=== PATIENT | female | born 1970 | race Caucasian/White ===

== ENCOUNTER 2020-04-16 11:26 | Inpatient (IN) ==
--- NOTE | 2020-04-16 11:41 | Emergency Department Note ---
Impression & Plan Combative behavior, Manic behavior ED Provider Note NAME: HERIBERTO CLARK AGE: 49 SEX: F : 1970 ARRIVES VIA: [employer] INFORMANT: Patient, ED PROVIDER(S): Dago Meyer MD Chief Complaint: Mental health evaluation HPI: Patient does present from a hotel with [place] police. The patient apparently had been destroying the room. Patient does present with manic tangential delusional and paranoid thoughts. Patient was concerned that she was going to be cut open. Patient believes that she recently aborted a fetus. The patient states that she does not speak to either a cell support operator or L and generous. She states that she does have to get to her spaceship. Patient initially did have a rock wrapped in a bandanna as a potential weapon. The patient denies having a gun. The patient is uncooperative during her exam and refuses to answer questions appropriately. ROS: Unable to obtain secondary to willingness to participate versus acute mental illness. Past medical history: See below Surgical history: See below Social history: See below Physical Exam: GENERAL: Wearing glasses and a mask. Agitated. EYE EXAM: Normal conjunctiva. PERRL, no anisocoria and EOM's grossly intact w/o pain. NECK: Supple, no nuchal rigidity, no adenopathy, non-tender. No signs of meningismus. LUNGS: Clear to auscultation. Normal chest wall mechanics. HEART: NSR, no MRG. ABDOMEN: Abdomen soft, non-tender, normo-active bowel sounds, no masses, no rebound or guarding. BACK: No CVA TTP. SKIN: No rashes and no bruising. UPPER EXTREMITIES: Upper extremities are grossly normal. LOWER EXTREMITIES: Grossly normal, no edema. NEURO EXAM: Eyes open, normal speech, moves all 4 extremities. Psych: Tangential speech, aggressive and verbally agitated. Differential diagnoses: Mood disorder, infection, hypoglycemia, electrolyte abnormalities, cardiac sources, intracerebral event, toxicologic, trauma, neurologic, as well as other pathologies. Course: Patient was seen and evaluated the bedside. Full history physical exam was performed. MDM: Patient seen due to concern for combative behavior as well as tangential speech and delusional thoughts. The patient did have to receive chemical sedation due to concern for the safety of herself and others as the patient did have aggressive behavior and was significantly agitated and would not respond to redirection. Blood work is unremarkable toxicology screen negative. Patient was pending evaluation by the psych correctional case manager. The patient was signed out to the nighttime physician Dr. Faustin pending reevaluation and disposition. Critical Care: I have personally spent 47 minutes of critical care time in direct management of this patient. This includes bedside care, interpretation of diagnostic studies, and testing, discussion with consultants, patient, and family members, and other require inpatient management activities. This 47 minutes is in excess of all separately billable procedures. Past Med/Surg History Medical History Hyperlipidemia Hypertension Surgical History No significant past surgical history Family History Other No pertinent family history Social History Smoking Status: Current every day smoker Tobacco Type: Cigarettes Hx Alcohol Use: No Hx Substance Use: No Preferred Language: P[place]in[place] marital status: Single Current Living Situation: Homeless current occupational status: unemployed Feels Safe at Home: Yes Allergies Allergies Allergy/AdvReac Type Severity Reaction Status Date / Time codeine Allergy Nausea Verified 04/16/20 16:43 erythromycin base Allergy Nausea Verified 04/16/20 16:43 lisinopril Allergy Cough Verified 04/16/20 16:43 Penicillins Allergy Nausea Verified 04/16/20 16:43 risperidone [From Risperdal] Allergy Unknown Verified 04/16/20 16:43 oxcarbazepine AdvReac Nausea Verified 04/16/20 16:43 [From Trileptal] Home Meds Home Medications Medication Instructions Recorded Confirmed propranolol 40 mg PO BID 07/04/19 04/16/20 Results & Data (ED) Vital Signs Vital Signs - 24 hr 04/16/20 11:14 04/16/20 13:44 04/16/20 16:09 Temperature 36.8 C Temperature Source Oral Pulse Rate 112 H Pulse Rate [Finger] 73 70 Pulse Rhythm [Finger] Regular Pulse Strength [Finger] Normal Respiratory Rate 20 14 18 Respiratory Effort / Characteristics Non-Labored Spontaneous Non-Labored Spontaneous Respiratory Depth Normal Normal Normal Respiratory Pattern Regular Regular Blood Pressure 148/107 H Blood Pressure [Right Arm] 122/71 100/64 Blood Pressure Mean 120 Blood Pressure Mean [Right Arm] 88 76 Blood Pressure Position Sitting Blood Pressure Position [Right Arm] Semi-fowlers Lying Pulse Oximetry 99 100 99 Oxygen Delivery Method Room Air Room Air Room Air Home Medications Current Medication List: was personally reviewed by me Laboratory Data Attestation: I reviewed the patient's lab results. Result diagrams: 04/16/20 11:49 04/16/20 11:49 Lab Results 04/16/20 04/16/20 04/16/20 Range/Units 11:49 11:49 11:49 WBC 6.44 (4.8-10.8) K/uL RBC 4.18 L (4.2-5.4) M/uL Hgb 13.2 (12.0-16.0) g/dL Hct 38.7 (37-47) % MCV 92.6 (80-100) fL MCH 31.6 (25-34) pg MCHC 34.1 (32-36) g/dL RDW Std Deviation 41.8 (36.4-46.3) fL RDW Coeff of Kathryn 12.2 (11.5-14.5) % Plt Count 361 (130-400) K/uL MPV 8.7 (7.4-10.4) fL Immature Gran % (Auto) 0.0 % Neut % (Auto) 54.0 % Lymph % (Auto) 35.9 % [place] % (Auto) 7.9 % Eos % (Auto) 1.1 % Baso % (Auto) 1.1 % Neut # (Auto) 3.48 (1.4-6.5) K/uL Lymph # (Auto) 2.31 (1.2-3.4) K/uL [place] # (Auto) 0.51 (0.11-0.59) K/uL Eos # (Auto) 0.07 (0-0.5) K/uL Baso # (Auto) 0.07 (0-0.2) K/uL Immature Gran # (Auto) 0.00 (0.00-0.02) K/uL Sodium 136 (136-145) mmol/L Potassium 4.0 (3.5-5.1) mmol/L Chloride 102 (98-107) mmol/L Carbon Dioxide 26 (21-32) mmol/L Anion Gap 8.0 (3-11) BUN 12 (7-18) mg/dl Creatinine 0.99 (0.6-1.2) mg/dl Est Cr Clr Drug Dosing Not Reportable Est GFR ( Amer) 78.7 Est GFR (Non-Af Amer) 67.9 BUN/Creatinine Ratio 12.0 (10-20) Glucose 107 H (70-99) mg/dl Calcium 9.4 (8.5-10.1) mg/dl Total Bilirubin 0.4 (0.2-1) mg/dl AST 27 (15-37) U/L ALT 41 (12-78) U/L Alkaline Phosphatase 61 (45-117) U/L Total Protein 7.7 (6.4-8.2) gm/dl Albumin 4.3 (3.4-5.0) gm/dl Globulin 3.4 (2.5-4.0) gm/dl Albumin/Globulin Ratio 1.3 (0.9-2) TSH 1.160 (0.300-4.500) uIu/ml Urine Color Urine Appearance (Clear) Urine pH (4.5-7.5) Ur Specific [place] (1.000-1.030) Urine Protein (Negative) Urine Glucose (UA) (Negative) Urine Ketones (Negative) Urine Blood (Negative) Urine Nitrite (Negative) Urine Bilirubin (Negative) Urine Urobilinogen (Negative) Ur Leukocyte Esterase (Negative) Urine WBC (Auto) (0-5) /hpf Urine RBC (Auto) (0-4) /hpf U Hyaline Cast (Auto) (0-5) /lpf U Epithel Cells (Auto) (0-5) /lpf Urine Bacteria (Auto) (Negative) Urine Test (Negative) Salicylates 2.4 L (2.8-20) mg/dl Urine Opiates Screen (Neg) Ur Methadone, Qual (Neg) Acetaminophen < 2 L (10-30) ug/ml Urine Barbiturates (Neg) Ur Phencyclidine (PCP) (Neg) U Amphetamin/Meth Scrn (Neg) MDMA (Ecstasy) Screen (Neg) U Benzodiazepines Scrn (Neg) Ur Cocaine Metabolite (Neg) U Marijuana (THC) Screen (Neg) Ethyl Alcohol mg/dL (0-3) mg/dl 10/18/20 10/18/20 10/18/20 Range/Units 11:49 14:40 14:40 WBC (4.8-10.8) K/uL RBC (4.2-5.4) M/uL Hgb (12.0-16.0) g/dL Hct (37-47) % MCV (80-100) fL MCH (25-34) pg MCHC (32-36) g/dL RDW Std Deviation (36.4-46.3) fL RDW Coeff of Kathryn (11.5-14.5) % Plt Count (130-400) K/uL MPV (7.4-10.4) fL Immature Gran % (Auto) % Neut % (Auto) % Lymph % (Auto) % [place] % (Auto) % Eos % (Auto) % Baso % (Auto) % Neut # (Auto) (1.4-6.5) K/uL Lymph # (Auto) (1.2-3.4) K/uL [place] # (Auto) (0.11-0.59) K/uL Eos # (Auto) (0-0.5) K/uL Baso # (Auto) (0-0.2) K/uL Immature Gran # (Auto) (0.00-0.02) K/uL Sodium (136-145) mmol/L Potassium (3.5-5.1) mmol/L Chloride (98-107) mmol/L Carbon Dioxide (21-32) mmol/L Anion Gap (3-11) BUN (7-18) mg/dl Creatinine (0.6-1.2) mg/dl Est Cr Clr Drug Dosing Est GFR ( Amer) Est GFR (Non-Af Amer) BUN/Creatinine Ratio (10-20) Glucose (70-99) mg/dl Calcium (8.5-10.1) mg/dl Total Bilirubin (0.2-1) mg/dl AST (15-37) U/L ALT (12-78) U/L Alkaline Phosphatase (45-117) U/L Total Protein (6.4-8.2) gm/dl Albumin (3.4-5.0) gm/dl Globulin (2.5-4.0) gm/dl Albumin/Globulin Ratio (0.9-2) TSH (0.300-4.500) uIu/ml Urine Color Yellow Urine Appearance Clear (Clear) Urine pH 6.5 (4.5-7.5) Ur Specific [place] 1.012 (1.000-1.030) Urine Protein 1+ H (Negative) Urine Glucose (UA) Negative (Negative) Urine Ketones Negative (Negative) Urine Blood Negative (Negative) Urine Nitrite Negative (Negative) Urine Bilirubin Negative (Negative) Urine Urobilinogen Negative (Negative) Ur Leukocyte Esterase Negative (Negative) Urine WBC (Auto) 1-5 (0-5) /hpf Urine RBC (Auto) 0-4 (0-4) /hpf U Hyaline Cast (Auto) 1-5 (0-5) /lpf U Epithel Cells (Auto) 10-20 H (0-5) /lpf Urine Bacteria (Auto) Negative (Negative) Urine Test Negative (Negative) Salicylates (2.8-20) mg/dl Urine Opiates Screen (Neg) Ur Methadone, Qual (Neg) Acetaminophen (10-30) ug/ml Urine Barbiturates (Neg) Ur Phencyclidine (PCP) (Neg) U Amphetamin/Meth Scrn (Neg) MDMA (Ecstasy) Screen (Neg) U Benzodiazepines Scrn (Neg) Ur Cocaine Metabolite (Neg) U Marijuana (THC) Screen (Neg) Ethyl Alcohol mg/dL < 3.0 (0-3) mg/dl 04/16/20 Range/Units 14:40 WBC (4.8-10.8) K/uL RBC (4.2-5.4) M/uL Hgb (12.0-16.0) g/dL Hct (37-47) % MCV (80-100) fL MCH (25-34) pg MCHC (32-36) g/dL RDW Std Deviation (36.4-46.3) fL RDW Coeff of Kathryn (11.5-14.5) % Plt Count (130-400) K/uL MPV (7.4-10.4) fL Immature Gran % (Auto) % Neut % (Auto) % Lymph % (Auto) % [place] % (Auto) % Eos % (Auto) % Baso % (Auto) % Neut # (Auto) (1.4-6.5) K/uL Lymph # (Auto) (1.2-3.4) K/uL [place] # (Auto) (0.11-0.59) K/uL Eos # (Auto) (0-0.5) K/uL Baso # (Auto) (0-0.2) K/uL Immature Gran # (Auto) (0.00-0.02) K/uL Sodium (136-145) mmol/L Potassium (3.5-5.1) mmol/L Chloride (98-107) mmol/L Carbon Dioxide (21-32) mmol/L Anion Gap (3-11) BUN (7-18) mg/dl Creatinine (0.6-1.2) mg/dl Est Cr Clr Drug Dosing Est GFR ( Amer) Est GFR (Non-Af Amer) BUN/Creatinine Ratio (10-20) Glucose (70-99) mg/dl Calcium (8.5-10.1) mg/dl Total Bilirubin (0.2-1) mg/dl AST (15-37) U/L ALT (12-78) U/L Alkaline Phosphatase (45-117) U/L Total Protein (6.4-8.2) gm/dl Albumin (3.4-5.0) gm/dl Globulin (2.5-4.0) gm/dl Albumin/Globulin Ratio (0.9-2) TSH (0.300-4.500) uIu/ml Urine Color Urine Appearance (Clear) Urine pH (4.5-7.5) Ur Specific [place] (1.000-1.030) Urine Protein (Negative) Urine Glucose (UA) (Negative) Urine Ketones (Negative) Urine Blood (Negative) Urine Nitrite (Negative) Urine Bilirubin (Negative) Urine Urobilinogen (Negative) Ur Leukocyte Esterase (Negative) Urine WBC (Auto) (0-5) /hpf Urine RBC (Auto) (0-4) /hpf U Hyaline Cast (Auto) (0-5) /lpf U Epithel Cells (Auto) (0-5) /lpf Urine Bacteria (Auto) (Negative) Urine Test (Negative) Salicylates (2.8-20) mg/dl Urine Opiates Screen Neg (Neg) Ur Methadone, Qual Neg (Neg) Acetaminophen (10-30) ug/ml Urine Barbiturates Neg (Neg) Ur Phencyclidine (PCP) Neg (Neg) U Amphetamin/Meth Scrn Neg (Neg) MDMA (Ecstasy) Screen Neg (Neg) U Benzodiazepines Scrn Neg (Neg) Ur Cocaine Metabolite Neg (Neg) U Marijuana (THC) Screen Pos H (Neg) Ethyl Alcohol mg/dL (0-3) mg/dl Administered Medications Diphenhydramine HCl (Diphenhydramine Hcl 50 Mg/Ml Vial) 25 mg IM ONE PRN PRN Reason: Agitation Stop: 05/16/20 11:49 Last Admin: 04/16/20 12:00 Dose: 25 mg Documented by: [id number] Discontinued Medications Haloperidol Lactate (Haloperidol Lactate 5 Mg/Ml 1 Ml Vial) 5 mg IM NOW STA Stop: 04/16/20 11:51 Last Admin: 04/16/20 12:12 Dose: Not Given Documented by: [id number] Haloperidol Lactate (Haloperidol Lactate 5 Mg/Ml 1 Ml Vial) 10 mg IM NOW STA Stop: 04/16/20 11:57 Last Admin: 04/16/20 12:00 Dose: 10 mg Documented by: [id number] Lorazepam (Lorazepam 2 Mg/Ml Vial (Im Use)) 2 mg IM NOW STA Stop: 04/16/20 11:51 Last Admin: 04/16/20 12:00 Dose: 2 mg Documented by: [id number] Discharge Plan Visit Data Chief Complaint: Mental Health Evaluation ED Provider: Dago Meyer Discharge Problem: Combative behavior, Manic behavior Forms Stand Alone Forms: [facility], Suicide Prevention Resources Prescriptions Prescriptions: No Action propranolol 40 mg Tablet 40 mg PO BID RF: 0
[2020-04-16] MEDS ORDERED: LORazepam 2 MG/ML VIAL (IM USE) IM STA (11:50)
[2020-04-16] MEDS ORDERED: HALOPERIDOL LACTATE 5 MG/ML 1 ML VIAL IM STA ×2 (11:50→11:56)
[2020-04-16] MEDS ORDERED: diphenhydrAMINE 50 MG/ML VIAL IM PRN (11:50)
[2020-04-16 12:09] LABS: Basophils # (auto) 0.07 K/uL (0-0.2); Basophils % (auto) 1.1 %; Eosinophils # (auto) 0.07 K/uL (0-0.5); Eosinophils % (auto) 1.1 %; Hematocrit (blood only) 38.7 % (37-47); Hemoglobin 13.2 g/dL (12.0-16.0); Lymphocytes # (auto) 2.31 K/uL (1.2-3.4); Lymphocytes % (auto) 35.9 %; Mean Corpuscular Hemoglobin 31.6 pg (25-34); Mean Corpuscular Hgb Conc 34.1 g/dL (32-36); Mean Corpuscular Volume 92.6 fL (80-100); Mean Platelet Volume 8.7 fL (7.4-10.4); Monocytes # (auto) 0.51 K/uL (0.11-0.59); Monocytes % (auto) 7.9 %; Neutrophils # (auto) 3.48 K/uL (1.4-6.5); Platelet Count 361 K/uL (130-400); RDW Coefficient of Variation 12.2 % (11.5-14.5); RDW Standard Deviation 41.8 fL (36.4-46.3); Red Blood Count 4.18 M/uL (4.2-5.4); White Blood Count 6.44 K/uL (4.8-10.8)
[2020-04-16 12:32] LABS: Alanine Aminotransferase 41 U/L (12-78); Albumin Level 4.3 gm/dl (3.4-5.0); Aspartate Aminotransferase 27 U/L (15-37); Blood Urea Nitrogen 12 mg/dl (7-18); Calcium 9.4 mg/dl (8.5-10.1); Carbon Dioxide 26 mmol/L (21-32); Chloride 102 mmol/L (98-107); Est GFR (African American) 78.7; Est GFR (Non-African American) 67.9; Glucose 107 mg/dl (70-99); Sodium 136 mmol/L (136-145)
[2020-04-16 12:34] LABS: Acetaminophen < 2 ug/ml (10-30)
[2020-04-16 12:35] LABS: Salicylate 2.4 mg/dl (2.8-20)
[2020-04-16 12:43] LABS: Albumin Globulin Ratio 1.3 (0.9-2); Alkaline Phosphatase 61 U/L (45-117); Bilirubin,Total 0.4 mg/dl (0.2-1); Globulin 3.4 gm/dl (2.5-4.0); Total Protein 7.7 gm/dl (6.4-8.2)
[2020-04-16 14:55] LABS: Appearance Urine Clear (Clear); Bacteria Urine Automated Negative (Negative); Bilirubin Urine Negative (Negative); Blood Urine Negative (Negative); Color Urine Yellow; Glucose Urine UA Negative (Negative); Ketones Urine Negative (Negative); Leukocyte Esterase Urine Negative (Negative); Nitrite Urine Negative (Negative); Pregnancy Test, Urine Negative (Negative); Protein Urine 1+ (Negative); RBC Urine Automated 0-4 /hpf (0-4); Specific Gravity Urine 1.012 (1.000-1.030); Urobilinogen Urine Negative (Negative); pH Urine 6.5 (4.5-7.5)
[2020-04-16 15:14] LABS: Amphetamines+Metham, Urine Neg (Neg); Barbiturates, Urine Neg (Neg); Benzodiazepine, Urine Neg (Neg); Cocaine, Urine Neg (Neg); MDMA (Ecstacy), Urine Neg (Neg); Methadone, Urine Neg (Neg); Opiate, Urine Neg (Neg); Phencyclidine, Urine Neg (Neg)
[2020-04-17] MEDS ORDERED: LORazepam 2 MG/ML VIAL (IM USE) IM STA (00:22)
[2020-04-17] MEDS ORDERED: HALOPERIDOL LACTATE 5 MG/ML 1 ML VIAL IM STA (00:22)
--- NOTE | 2020-04-17 00:25 | Emergency Department Note ---
ED Visit Note I received this patient at change of shift signout from Dr. Meyer. Please see his note for initial history and physical exam. The patient is a 49-year-old female who presented to the emergency department with an acute mental health problem. The patient was medically cleared in the emergency department however she was very combative she required chemical restraint which was ordered by Dr. Meyer. She received Haldol and Ativan. She was reevaluated in the emergency department multiple times but was still very sedated. On my evaluation the p atnelia was awake and alert. She awakens easily to verbal commands. She still has very significant mental health issues at this time. For this reason I have decided to sign the 302 petition requiring the patient to have involuntary mental health admission. She initially was very argumentative and started to become combative although she was very easily deescalated verbally. At this time we are awaiting the delegates arrival so we can move forward the 302 admission. 0135: The patient has been medically cleared. I reviewed her work-up that was done earlier. She is being evaluated currently by the mental health delegate from [address] for possible inpatient management. At this time I do feel the patient will require the 302 to be upheld. .
[2020-04-17] MEDS ORDERED: haloperidoL 5 MG TAB PO STA (04:12)
[2020-04-17] MEDS ORDERED: ALUMINUM/MAGNESIUM SUSP 30 ML UDC PO PRN (05:01)
[2020-04-17] MEDS ORDERED: MAGNESIUM HYDROXIDE SUSP 30 ML UDC PO PRN (05:01)
[2020-04-17] MEDS ORDERED: ACETAMINOPHEN 325 MG TAB PO PRN (05:01)
[2020-04-17] MEDS ORDERED: SODIUM CHLORIDE 0.65% NA SOLN 45 ML (OCEAN) PRN (05:01)
[2020-04-17] MEDS ORDERED: BISMUTH SUBSALICYLATE LIQD 236 ML PO PRN (05:01)
[2020-04-17] MEDS ORDERED: hydrOXYzine HCl 25 MG TAB PO PRN (05:01)
[2020-04-17] MEDS ORDERED: haloperidoL 5 MG TAB PO PRN (05:06)
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
[2020-04-17] MEDS ORDERED: HALOPERIDOL LACTATE 5 MG/ML 1 ML VIAL IM PRN (10:44)
[2020-04-17] MEDS: LORazepam 1 MG TAB PO PRN ×2 (11:12→19:09)
[2020-04-17] MEDS: haloperidoL 5 MG TAB PO SCH ×2 (11:12→19:14)
[2020-04-18] MEDS: LORazepam 1 MG TAB PO PRN ×2 (06:54→20:54)
[2020-04-18] MEDS: haloperidoL 5 MG TAB PO SCH ×3 (07:23→22:37)
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
[2020-04-19 08:32] LABS: Marijuana Quant, GCMS Urine 53 ng/mL (<5)
[2020-04-19] MEDS: haloperidoL 5 MG TAB PO SCH ×2 (10:58→19:02)
[2020-04-19] MEDS: LORazepam 1 MG TAB PO PRN ×2 (10:58→19:02)
[2020-04-19] MEDS: NICOTINE 14 MG/24 HR PATCH TD SCH (12:30)
[2020-04-19] MEDS: haloperidoL 5 MG TAB PO PRN (17:04)
[2020-04-20] MEDS: haloperidoL 5 MG TAB PO SCH ×2 (08:52→18:57)
[2020-04-20] MEDS: NICOTINE 14 MG/24 HR PATCH TD SCH ×2 (08:54→15:37)
[2020-04-20] MEDS: LORazepam 1 MG TAB PO PRN ×3 (09:14→18:57)
[2020-04-20] MEDS ORDERED: HALOPERIDOL DECANOATE INJ 50 MG/ML VIAL IM ONE (11:35)
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
[2020-04-20] MEDS: haloperidoL 5 MG TAB PO PRN (15:38)
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
[2020-04-21] MEDS: haloperidoL 5 MG TAB PO PRN ×2 (09:58→14:29)
[2020-04-21] MEDS: LORazepam 1 MG TAB PO PRN ×3 (09:58→20:12)
[2020-04-21] MEDS: hydrOXYzine HCl 25 MG TAB PO PRN (13:08)
[2020-04-21] MEDS: haloperidoL 5 MG TAB PO SCH (20:13)
[2020-04-22] MEDS: haloperidoL 5 MG TAB PO PRN ×2 (09:30→16:02)
[2020-04-22] MEDS: LORazepam 1 MG TAB PO PRN ×2 (09:30→15:32)
[2020-04-22] MEDS: NICOTINE 14 MG/24 HR PATCH TD SCH (11:24)
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
[2020-04-22] MEDS: hydrOXYzine HCl 25 MG TAB PO PRN (12:46)
[2020-04-22] MEDS: BENZTROPINE MESYLATE 0.5 MG TAB PO SCH ×2 (13:21→19:55)
[2020-04-22] MEDS: haloperidoL 5 MG TAB PO SCH (19:55)
[2020-04-23] MEDS: haloperidoL 5 MG TAB PO PRN ×3 (09:18→18:15)
[2020-04-23] MEDS: LORazepam 1 MG TAB PO PRN ×3 (09:19→18:15)
[2020-04-23] MEDS: BENZTROPINE MESYLATE 0.5 MG TAB PO SCH ×2 (09:19→22:04)
[2020-04-23] MEDS: NICOTINE 14 MG/24 HR PATCH TD SCH (09:22)
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
[2020-04-23] MEDS: hydrOXYzine HCl 25 MG TAB PO PRN (16:07)
[2020-04-23] MEDS: haloperidoL 5 MG TAB PO SCH (22:05)
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
[2020-04-24] MEDS: BENZTROPINE MESYLATE 0.5 MG TAB PO SCH ×2 (09:55→19:20)
[2020-04-24] MEDS: NICOTINE 14 MG/24 HR PATCH TD SCH (09:55)
[2020-04-24] MEDS: haloperidoL 5 MG TAB PO PRN (10:01)
[2020-04-24] MEDS: LORazepam 1 MG TAB PO PRN ×2 (10:01→19:20)
[2020-04-24] MEDS ORDERED: HALOPERIDOL DECANOATE INJ 50 MG/ML VIAL IM ONE (12:00)
[2020-04-24] MEDS: hydrOXYzine HCl 25 MG TAB PO PRN (15:10)
[2020-04-24] MEDS: haloperidoL 5 MG TAB PO SCH (19:20)
[2020-04-25] MEDS: NICOTINE 14 MG/24 HR PATCH TD SCH (08:20)
[2020-04-25] MEDS: BENZTROPINE MESYLATE 0.5 MG TAB PO SCH ×2 (08:20→21:35)
[2020-04-25] MEDS: LORazepam 1 MG TAB PO PRN (08:21)
[2020-04-25] MEDS: haloperidoL 5 MG TAB PO PRN (08:22)
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
[2020-04-25] MEDS: hydrOXYzine HCl 25 MG TAB PO PRN (14:16)
[2020-04-25] MEDS: haloperidoL 1 MG TAB PO PRN (15:37)
[2020-04-25] MEDS: LORazepam 0.5 MG TAB PO PRN ×2 (15:37→21:33)
[2020-04-25] MEDS: haloperidoL 5 MG TAB PO SCH (21:34)
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
[2020-04-26] MEDS: BENZTROPINE MESYLATE 0.5 MG TAB PO SCH ×2 (08:22→21:20)
[2020-04-26] MEDS: haloperidoL 1 MG TAB PO PRN ×2 (08:33→15:39)
[2020-04-26] MEDS: LORazepam 0.5 MG TAB PO PRN ×2 (08:33→15:39)
[2020-04-26] MEDS ORDERED: NICOTINE 21 MG/24 HR TDSY TD SCH (09:00)
[2020-04-26] MEDS: hydrOXYzine HCl 25 MG TAB PO PRN (11:43)
[2020-04-26] MEDS: haloperidoL 5 MG TAB PO SCH (21:20)
[2020-04-27] MEDS: BENZTROPINE MESYLATE 0.5 MG TAB PO SCH ×2 (08:14→21:20)
[2020-04-27] MEDS: LORazepam 0.5 MG TAB PO PRN ×2 (08:15→13:55)
[2020-04-27] MEDS: haloperidoL 1 MG TAB PO PRN ×2 (08:15→14:18)
[2020-04-27] MEDS: NICOTINE 14 MG/24 HR PATCH TD SCH ×2 (08:39→14:18)
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
[2020-04-27] MEDS: hydrOXYzine HCl 25 MG TAB PO PRN (16:10)
[2020-04-27] MEDS: haloperidoL 5 MG TAB PO SCH (21:20)
[2020-04-28] MEDS: LORazepam 0.5 MG TAB PO PRN ×2 (08:10→14:09)
[2020-04-28] MEDS: BENZTROPINE MESYLATE 0.5 MG TAB PO SCH ×2 (08:10→20:05)
[2020-04-28] MEDS: NICOTINE 14 MG/24 HR PATCH TD SCH (08:10)
[2020-04-28] MEDS: haloperidoL 1 MG TAB PO PRN ×2 (08:11→14:09)
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
[2020-04-28] MEDS: NICOTINE POLACRILEX 2 MG GUM MT PRN (13:15)
[2020-04-28] MEDS: haloperidoL 5 MG TAB PO SCH (20:05)
[2020-04-29] MEDS: BENZTROPINE MESYLATE 0.5 MG TAB PO SCH ×2 (08:16→20:57)
[2020-04-29] MEDS: LORazepam 0.5 MG TAB PO PRN ×3 (08:16→20:57)
[2020-04-29] MEDS: haloperidoL 1 MG TAB PO PRN ×2 (08:16→14:40)
[2020-04-29] MEDS: NICOTINE 14 MG/24 HR PATCH TD SCH (08:16)
[2020-04-29] MEDS: hydrOXYzine HCl 25 MG TAB PO PRN ×2 (12:11→16:39)
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
[2020-04-29] MEDS: NICOTINE POLACRILEX 2 MG GUM MT PRN ×2 (14:37→18:31)
[2020-04-29] MEDS: haloperidoL 5 MG TAB PO SCH (20:57)
[2020-04-30] MEDS: LORazepam 0.5 MG TAB PO PRN ×2 (07:59→15:36)
[2020-04-30] MEDS: BENZTROPINE MESYLATE 0.5 MG TAB PO SCH ×2 (08:00→20:28)
[2020-04-30] MEDS: NICOTINE 14 MG/24 HR PATCH TD SCH (08:00)
[2020-04-30] MEDS: haloperidoL 1 MG TAB PO PRN ×2 (08:00→15:38)
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
[2020-04-30] MEDS: TERBINAFINE CR 30 GM TUBE EXT SCH ×2 (10:58→17:06)
[2020-04-30] MEDS: hydrOXYzine HCl 25 MG TAB PO PRN (13:10)
[2020-04-30] MEDS: NICOTINE POLACRILEX 2 MG GUM MT PRN (13:11)
[2020-04-30] MEDS: haloperidoL 5 MG TAB PO SCH (20:28)
[2020-05-01] MEDS: NICOTINE 14 MG/24 HR PATCH TD SCH (07:33)
[2020-05-01] MEDS: TERBINAFINE CR 30 GM TUBE EXT SCH ×2 (07:34→21:12)
[2020-05-01] MEDS: LORazepam 0.5 MG TAB PO PRN ×2 (07:49→14:10)
[2020-05-01] MEDS: BENZTROPINE MESYLATE 0.5 MG TAB PO SCH ×2 (07:49→21:13)
[2020-05-01] MEDS: haloperidoL 1 MG TAB PO PRN ×2 (07:49→14:10)
[2020-05-01] MEDS: NICOTINE POLACRILEX 2 MG GUM MT PRN (09:21)
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
[2020-05-01] MEDS: hydrOXYzine HCl 25 MG TAB PO PRN (17:08)
[2020-05-01] MEDS: haloperidoL 5 MG TAB PO SCH (21:13)
[2020-05-02] MEDS: BENZTROPINE MESYLATE 0.5 MG TAB PO SCH (07:29)
[2020-05-02] MEDS: LORazepam 0.5 MG TAB PO PRN (07:29)
[2020-05-02] MEDS: haloperidoL 1 MG TAB PO PRN (07:30)
[2020-05-02] MEDS: TERBINAFINE CR 30 GM TUBE EXT SCH (08:05)
[2020-05-02] MEDS: NICOTINE 14 MG/24 HR PATCH TD SCH (08:05)
--- NOTE | 2020-05-02 10:42 | Discharge Summary ---
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 patient continues to be very delusional - Discussed recommendation for second loading injection of haloperidol decanoate - as patient has been getting 15-20mg of haloperidol daily when considering prn dose requests. Pt agreed to the second injection after discuss ion of risks and benefits - Discharge planning meeting on 04/26; pt aware she will be discharged to police custody but is not able to recognize the actions that are leading to this 04/25 - Pt did not verbalize any delusional thought content during encounter. Though this is an improvement, it is certainly likely that delusional thought content persists and patient was simply less preoccupied with it during our conversation - Pt is utilizing hydroxyzine more frequently for anxiety, and as needed dose of haloperidol has been reduced to 2.5mg q6h and lorazepam reduced to 0.5mg q6h (given only with haloperidol). Pt continues to verbalize that she does not feel she will require the as needed medications on discharge. - Discharge planning meeting scheduled for tomorrow - continue efforts to coordinate appropriate aftercare, despite unknown duration of confinement by police on discharge. 04/26 -Continue to taper lorazepam, decreased to 0.5 mg twice daily as needed. Will not discharge on this medication given substance abuse issues. -Continue p.o. haloperidol for 1 to 2 weeks; received Haldol decanoate 100 mg on 04/20/2020 and 04/24/2020. Maintenance injection will be due in 4 weeks (05/22/2020). -Discharge planning meeting with the [facility]. Probation office was supposed to attend but did not. Will file for a 304 IOC hearing on . 05/02, with discharge to police. Forensic case management social worker met with patient last week, but she was poorly receptive. Have attempted to contact [facility] the [facility] for coordination of care, had to leave a message requesting a call back. 04/27 -Spoke with Annabelle Merritt, instructor of nursing, and MH clinician at the [facility] to review patient's case for coordination of care as she will be going there Friday. 04/28 - Continue current treatment plan - 304 IOC scheduled for 05/02 with discharge to police Reviewed 04/29/20. Plan: continue current med/treatment plan. 05/02 -Discharged to probation. Care has been coordinated with [facility] psychiatric staff, and records will be sent. Care has been guarded with [employer], and records will be sent. 304 IOC hearing held today and petition granted. -Paper prescriptions issued for #30-day supply. Mental Health & Subst Abuse Tx Psychiatrist [facility] Psychiatric Appointment Comment: Please use services in [facility] to establish appointments once released Psychiatrist Release of Information: Obtained, Reviewed and Signed Rn Charge Name of Rn Charge: [employer] [facility] - Monalisa Zuniga Phone Number for Rn Charge: [phone] Case Management Appointment Comment: Will meet with you virtually while incarcerated Rn Charge Release of Information: Obtained, Reviewed and Signed Post Discharge Appointments Smoking Cessation Counseling Tobacco Cessation Medication Prescribed at Discharge: Offered & Prescribed Contact Information Discharge Discharge Address: [address] [place] [address], [facility], [place] [address] Contact Information Comment: [facility] Facility: [address] [place] [address] Dameon Bautista, [place] Discharge Plan Discharge Items Patient Disposition: Correctional Facility Reason For Visit: SCHIZOPHRENIA Discharge Diagnosis: Psychosis NOS Activity: Per Instructions section Non-emergency contact: Primary Care Provider, Psychiatrist, Therapist and Harvest Supervisor Call non-emergency contact if: you have any medication questions and your symptoms worsen Follow-up/Referrals: PCP,NO [Primary Care Provider] - Diet: Regular Addtl Attending Provider Instructions: SPECIAL CARE INSTRUCTIONS: 1. Follow through with your scheduled aftercare appointments. If unable to keep an appointment, please call to reschedule. [facility]. Monalisa Zuniga will be your case management social worker through [facility] and will assist with arranging outpatient therapy, psychiatry, and case management. 2. Take your medication only as prescribed. Medication should not be changed or stopped without the approval of your doctor. In the event of worsening symptoms or concerns about side effects, contact your doctor immediately. 3. Utilize new healthy coping skills, anger management skills, and stress management skills learned during your hospitalization. Journal feelings and process them with a support person. Identify stressors or situations that may result in relapse, deterioration or inappropriate behaviors and develop a plan to deal with those issues. 4. If your coping skills are ineffective and you are in crisis, contact your outpatient providers for direction. If unable to reach your providers, please call the [facility] CRISIS LINE AT , go to the [facility] walk-in center at [address], [place], or go to the closest Emergency Room. 5. Avoid alcohol and un-prescribed drugs. 6. You have been provided with the Mental Health Advance Directives Pamphlet for your review. AFTERCARE APPOINTMENTS: * Please call your insurance company prior to your scheduled appointment to confirm your aftercare providers are covered. Take your insurance information to your appointments. WHO TO CALL AND WHEN: Medical Emergencies: For questions or emergencies related to your hospital stay, please contact the Inpatient Behavioral Health Unit at [phone]. A burring wheel operator is on-call 20/01 for the Behavioral Health Unit for emergencies At any time you feel your situation is an emergency, you may also call 911 immediately. Pending Studies at Discharge: No Stand-Alone Forms: My [employer] Skilled Items Patient informed of condition?: Yes Discharge Level of Care: Other Communicable Disease: No Discharge Prognosis: Improving Lines: None Urinary Catheter: No Medications and DC Order Prescriptions: New benztropine 0.5 mg Tablet 0.5 mg PO BID Qty: 60 RF: 0 terbinafine HCl 1 % Cream 1 applic EXT BID Qty: 1 RF: 0 haloperidol decanoate 50 mg/mL Solution 200 mg IM Q4WK Qty: 4 RF: 0 haloperidol 2 mg tablet 2 mg PO BID PRN (Reason: psychosis) Qty: 60 RF: 0 Discharge Orders: Discharge Order (Routine); Ordered 05/02/20 Ordered By: Tatyana Lilly Admission Data Admit Date/Time: 04/17/20 03:12 Attending Provider: Tatyana Lilly Admit Provider: Jody Drake Primary Care Provider: PCP,NO Other Interventions: Discharge Summary Assessment (RN) Last Done: 05/02/20 09:36 PSY Interdisciplinary Discharge Planning Last Done: 05/02/20 09:37 Coding Level of Care Code 40470 D/C day mgmt > 30 min Diagnoses Psychosis F29
[2020-05-22] MEDS ORDERED: HALOPERIDOL DECANOATE INJ 50 MG/ML VIAL IM SCH (09:00)
== END 2020-05-02 11:35 | DRG 885 ==
LOC: ED 11:26 → 3S 04-17 03:12